=== PATIENT | male | born 1960 | race Caucasian/White ===

== ENCOUNTER 2017-10-21 20:42 | Observation (INO) | payer OTHER ==
--- NOTE | 2017-10-21 20:55 | PDOC ---
Rapid Medical Evaluation Medical Evaluation: 10/21/17 20:48 I have performed a brief in-person evaluation of this patient. The patient presents with a chief complaint of: went to chiropractor today, feels dizzy with "cold and hot to my right arm and left leg", denies weakness/ numbness, felt shaky, nauseous earlier, "difficulty speaking a little" Pertinent physical exam findings: pale, garbled speech I have ordered the following: CBC, CMP, head ct The patient will proceed to the ED for further evaluation. Discharge Disposition - Diagnosis Dizziness - Referrals - Patient Instructions - Post Discharge Activity
[2017-10-21] MEDS ORDERED: SODIUM CHLORIDE 1,000 ML IV SCH (21:00)
--- NOTE | 2017-10-21 21:31 | PDOC ---
History of Present Illness - General History Source: Patient Exam Limitations: No Limitations - History of Present Illness Initial Comments: 10/21/17 21:44 The patient is a 56 year old male with a past medical history of hyperlipidemia , who presents to the emergency department today with confusion. The patient states that earlier today he was driving his car when began to feel confused and could not think straight. The patient reported associated blurred vision. He states that he called his son who brought him to the ED. The patient notes that he had an appointment with the chiropractor today but his head and neck were not manipulated. The patient stated that his symptoms resolved but he has had similar intermittent episodes since his initial episode. He states that he has never previously experience these symptoms. <Sudhir Vargas - Last Filed: 10/21/17 21:44> - General History Source: Patient Exam Limitations: No Limitations <Kesha Lim - Last Filed: 10/22/17 00:30> - General Chief Complaint: CVA/TIA Stated Complaint: FATIGUE Time Seen by Provider: 10/21/17 20:47 Past History <Sudhir Vargas - Last Filed: 10/21/17 21:44> - Past Medical History CVA: No COPD: No - Surgical History GI Surgery: Yes (hernia repair.) - Suicide/Smoking/Psychosocial Hx Smoking History: Never smoked Have you smoked in the past 12 months: No Information on smoking cessation initiated: No Hx Alcohol Use: No Drug/Substance Use Hx: No Substance Use Type: None <Kesha Lim - Last Filed: 10/22/17 00:30> - Past Medical History Allergies/Adverse Reactions: Allergies Allergy/AdvReac Type Severity Reaction Status Date / Time No Known Allergies Allergy Verified 10/21/17 21:01 Home Medications: Ambulatory Orders Aspirin [ASA -] 81 mg PO DAILY 10/21/17 Ezetimibe/Simvastatin [Vytorin 10-10 mg Tablet] 1 tab PO DAILY 10/21/17 Review of Systems - Review of Systems Able to Perform ROS?: Yes Comments:: 10/21/17 21:45 GENERAL/CONSTITUTIONAL: No fever or chills. No weakness. HEAD, EYES, EARS, NOSE AND THROAT: No ear pain or discharge. No sore throat. GASTROINTESTINAL: No nausea, vomiting, diarrhea or constipation. GENITOURINARY: No dysuria, frequency, or change in urination. CARDIOVASCULAR: No chest pain or shortness of breath. RESPIRATORY: No cough, wheezing, or hemoptysis. MUSCULOSKELETAL: No joint or muscle swelling or pain. No neck or back pain. SKIN: No rash NEUROLOGIC: (+) Confusion, blurred vision. ENDOCRINE: No increased thirst. No abnormal weight change. HEMATOLOGIC/LYMPHATIC: No anemia, easy bleeding, or history of blood clots. ALLERGIC/IMMUNOLOGIC: No hives or skin allergy. <Sudhir Vargas - Last Filed: 10/21/17 21:44> *Physical Exam - Vital Signs Last Vital Signs Temp Pulse Resp BP Pulse Ox 97.5 F L 103 H 20 154/98 100 10/21/17 20:51 10/21/17 20:51 10/21/17 20:51 10/21/17 20:51 10/21/17 20:51 - Physical Exam Comments: 10/21/17 21:45 GENERAL: Awake, alert, and fully oriented, in no acute distress HEAD: No signs of trauma EYES: PERRLA, EOMI, sclera anicteric, conjunctiva clear ENT: Auricles normal inspection, nares patent, Moist mucosa NECK: Normal ROM, supple, no lymphadenopathy, JVD, or masses LUNGS: Breath sounds equal, clear to auscultation bilaterally. No wheezes, and no crackles HEART: Regular rate and rhythm, normal S1 and S2, no murmurs, rubs or gallops ABDOMEN: Soft, nontender, normoactive bowel sounds. No guarding, no rebound. No masses EXTREMITIES: Normal range of motion, no edema. No clubbing or cyanosis. No cords, erythema, or tenderness NEUROLOGICAL: NIHSS 0 finger nose intace 5/5 all 4 extremities, speech clear, no dysarthria, some problems with memory recall. SKIN: Warm, Dry, normal turgor, no rashes or lesions noted. <Sudhir Vargas - Last Filed: 10/21/17 21:44> - Vital Signs Last Vital Signs Temp Pulse Resp BP Pulse Ox 97.5 F L 103 H 20 154/98 100 10/21/17 20:51 10/21/17 20:51 10/21/17 20:51 10/21/17 20:51 10/21/17 20:51 <Kesha Lim - Last Filed: 10/22/17 00:30> NIH Stroke Scale - Initial Evaluation Level of consciousness: Alert Ask patient the month and their age: Answers both correctly Ask patient to open & close eyes; make fist and let go: Obeys both correctly Best gaze (horizontal eye movement): Normal Visual field testing: No visual field loss Facial paresis (Show teeth/raise eyebrows/close eyes tight): Normal symmetrical movement Motor Function: Left Arm: Normal Motor Function: Right Arm: Normal (extends arm 90 (or 45) degrees for 10 seconds without drift Motor Function: Left Leg: Normal (extends leg 30 degrees for 5 seconds without drift) Motor Function: Right Leg: Normal (extends leg 30 degrees for 5 seconds without drift) Limb Ataxia: No ataxia Sensory(Use pinprick test arms,legs,trunk,face/side to side): Normal Best language (Describe picture, name items, read sentences): No Aphasia Dysarthria (read several words): Normal articulation Extinction and Inattention: No abnormality - Total Score NIH Stroke Scale Score: 0 <Kesha Lim Last Filed: 10/22/17 00:30> tPA Exclusion Checklist 0-3hr - Thrombolytic Therapy Candidate Is the patient eligible for Thrombolytic Therapy?: No - Exclusion Criteria 0-3hr SBP greater than 185 or DBP greater than 110mmHg despite tx: No Recent IC/spinal surgery,head trauma or stroke w/in last 3mo: No Hx of previous IC hemorrhage, IC neoplasm, AVM or aneurysm: No Active internal bleeding: No Blding diathesis(low plt ct, inc PTT,INR>1.7 or use of NOAC): No Symptoms suggest subarachnoid hemorrhage: No CT demonstrates multilobar infarct(>1/3 cerebral hemiphere): No Arterial puncture at noncompressible site in previous 7 days: No Blood glucose concentration less than 50mg/dL (2.7mmol/L): No - Relative Exclusion Criteria 0-3h Rapid improvement: Yes - Ineligibility reason(s) Reasons No tPA given: See reason(s) noted above (rapid improvement, NIH zero) <Kesha Lim Last Filed: 10/22/17 00:30> Heart Score/ECG Review #1 ECG reviewed & interpreted by me at: 21:30 General ECG Interpretation: Sinus Rhythm, Normal Rate (86), Normal Intervals, No acute ischemic changes <Kesha Lim - Last Filed: 10/22/17 00:30> Critical Care Time/[facility] Note - Medical Decision Making Note: 10/21/17 21:28 56-year-old male with history of hyperlipidemia here today complaining of an episode of transient confusion, feeling unsteady and lightheaded. Patient states he was crossing the street and suddenly felt like he was about to faint with Confusion and difficulty speaking he thought he had some vision changes at the time. Called his son and spoke to his son while driving home symptoms have resolved however he still feels slightly confused and having some difficulty with memory no history of prior similar symptoms no prior CVA no history of vertigo patient states he did get chiropractic manipulation today however was done on his lower back and denies any neck manipulation On exam he is awake alert no acute distress bases are symmetric speech is clear lungs and heart exam is normal neurological exam NIH stroke scale is 05 out of 5 all 4 extremities speech is clear cranial nerves are intact patient having some difficulty with remote memory Differential includes electrolyte abnormality, hypoglycemia, TIA or CVA, ICH, near syncope or dysrhythmia. Plan CT head was ordered per stroke protocol neurology consult labs. At this point patient's symptoms have completely resolved therefore is not a TPA candidate will likely admit for telemetry observation to rule out TIA or dysrhythmia <Kesha Lim - Last Filed: 10/22/17 00:30> Discharge Disposition - Transfer to Acute Care Facility Transfer comment: 10/21/17 21:45 Documentation prepared by Sudhir Vargas, acting as medical pathology teacher for Kesha Lim MD. <Sudhir Vargas - Last Filed: 10/21/17 21:44> - Discharge Dispostion Last Admission D/C Date: 04/19/05 Admit: Yes <Kesha Lim - Last Filed: 10/22/17 00:30> - Diagnosis Dizziness, TIA (transient ischemic attack)
[2017-10-21 21:47] LABS: BASOPHIL 0.5 % (0-2.0); EOSINOPHIL 1.1 % (0-4.5); MCH 30.2 pg (25.7-33.7); MCHC 33.6 g/dl (32.0-35.9); MEAN PLT VOLUME 7.7 fl (7.5-11.1); NEUTROPHILS 46.3 % (42.8-82.8); PLATELET COUNT 187 K/MM3 (134-434); RDW 13.6 % (11.9-15.9); WHITE BLOOD COUNT 7.7 K/mm3 (4.0-10.0)
[2017-10-21] MEDS ORDERED: SODIUM CHLORIDE 0.9% 1000 ML INFUS.BAG IV ONE (21:55)
[2017-10-21 22:06] LABS: INR 0.99 (0.82-1.09); PROTHROMBIN TIME (PATIENT) 11.2 SEC (9.98-11.88)
[2017-10-21 22:44] LABS: ALBUMIN 4.3 g/dl (3.4-5.0); ANION GAP 5 (8-16); BILIRUBIN,TOTAL 0.4 mg/dL (0.2-1.0); CALCIUM 8.9 mg/dL (8.5-10.1); CHOLESTEROL 181 mg/dL (50-200); CO2 31 mmol/L (21-32); CREATININE 1.2 mg/dL (0.7-1.3); GLUCOSE,RANDOM 124 mg/dL (74-106); SGOT/AST 28 U/L (15-37); SGPT/ALT 49 U/L (12-78); TOT PROT 7.5 g/dl (6.4-8.2)
[2017-10-21 22:45] LABS: ALK PHOS 71 U/L (45-117); CPK 426 IU/L (39-308); TROPONIN I 0.04 ng/ml (0.00-0.05)
--- NOTE | 2017-10-22 00:16 | HP ---
CHIEF COMPLAINT: Visual blurriness/confusion HISTORY OF PRESENT ILLNESS: 56yo M with only history of HLD who presents to ED after experiencing a short episode of visual blurriness and confusion. Pt reports having 2-3 episodes that lasted only a few minutes of visual blurriness and some confusion while driving. Pt states he called his brother and had him stay on the line with him while he drove home. Pt was then brought to hospital by his brother for further work-up. His at bedside states he would look at his phone and not understand how to use it or what he was reading. Pt reports never having this occur before and how his symptoms have completely resolved currently. He also states he saw a chiropractor today, but did not have his head or neck manipulated. He went to a chiropractor originally for lower lumbar pain which he attributes to sitting and standing at work. Pt denied fever, nausea/vomiting/ diarrhea/conspitation, lightheadedness, CP/discomfort, palpitations, SOB, abdominal pain, polyuria and dysuria. Pt did not experience any weakness or sensory deficits during these episodes either. ER course was notable for: (1) Head CT - No acute pathology. Old lacunar infarcts noted (2) MRI Brain - Mild nonspecific volume loss. No acute infarct, mass or lesion seen. (3) UA - Trace ketones Recent Travel: Denies PAST MEDICAL HISTORY: HLD PAST SURGICAL HISTORY: Hernia repair Social History: Smoking: Denies Alcohol: Holidays Drugs: Denies Family History: Mother - "Heart problems;" suspected CA Father - at a young age overseas; unknown cause Allergies No Known Allergies Allergy (Verified 10/21/17 21:01) HOME MEDICATIONS: Home Medications Medication Instructions Recorded Aspirin [ASA -] 81 mg PO DAILY 10/21/17 Ezetimibe/Simvastatin [Vytorin 1 tab PO DAILY 10/21/17 10-10 mg Tablet] REVIEW OF SYSTEMS CONSTITUTIONAL: Absent: fever, diaphoresis, generalized weakness, malaise, loss of appetite, weight change HEENT: Absent: rhinorrhea, nasal congestion, throat pain, throat swelling, difficulty swallowing, mouth swelling, ear pain, eye pain, visual changes CARDIOVASCULAR: Absent: chest pain, syncope, palpitations, irregular heart rate, lightheadedness , peripheral edema RESPIRATORY: Absent: cough, shortness of breath, dyspnea with exertion, orthopnea, wheezing, stridor, hemoptysis GASTROINTESTINAL: Absent: abdominal pain, abdominal distension, nausea, vomiting, diarrhea, constipation, melena, hematochezia GENITOURINARY: Absent: dysuria, frequency, urgency, hesitancy, hematuria, flank pain, genital pain MUSCULOSKELETAL: Absent: myalgia, arthralgia, joint swelling, back pain, neck pain SKIN: Absent: rash, itching, pallor HEMATOLOGIC/IMMUNOLOGIC: Absent: easy bleeding, easy bruising, lymphadenopathy, frequent infections ENDOCRINE: Absent: unexplained weight gain, unexplained weight loss, heat intolerance, cold intolerance NEUROLOGIC: Present: Visual changes, confusion Absent: headache, focal weakness or paresthesias, dizziness, unsteady gait, seizure, bladder or bowel incontinence PSYCHIATRIC: Absent: anxiety, depression, suicidal or homicidal ideation, hallucinations. PHYSICAL EXAMINATION Vital Signs - 24 hr 10/21/17 20:51 Temperature 97.5 F L Pulse Rate 103 H Respiratory 20 Rate Blood Pressure 154/98 O2 Sat by Pulse 100 Oximetry (%) GENERAL: Awake, alert, NAD, sitting comfortably in bed HEENT: EOMI, CIERA, No JVD, no lymphadenopathy, no uvula deviation, no tongue deviation, no erythema or plaques in posterior oropharynx. No neck stiffness. LUNGS: CTA bilaterally. No wheezes, rales, rhonchi. No accessory muscle use. HEART: RRR, normal S1 and S2 without murmur ABDOMEN: Soft, nontender, non-distended, normoactive bowel sounds, no guarding, no rebound, no masses. No hepatomegaly appreciated. MUSCULOSKELETAL: Normal range of motion at all joints. No bony deformities or tenderness. No CVA tenderness. EXTREMITIES: 2+ DP pulses, warm, no edema. NEUROLOGICAL: Cranial nerves II-XII intact. EOMI, peripheral vision intact. Normal speech, strength 5/5 throughout (including shoulder shrug, upper extremities and lower extremities). Gait not observed. No sensory deficits diffusely. No arm drift. PSYCHIATRIC: Cooperative. Good eye contact. Appropriate mood and affect. SKIN: Warm, no rashes or lesions noted, cap refill <2sec Laboratory Results - last 24 hr 10/21/17 10/21/17 10/21/17 21:15 21:15 21:15 WBC 7.7 RBC 4.75 Hgb 14.4 Hct 42.7 MCV 90.0 MCH 30.2 MCHC 33.6 RDW 13.6 Plt Count 187 MPV 7.7 Neutrophils % 46.3 Lymphocytes % 43.5 H Monocytes % 8.6 Eosinophils % 1.1 Basophils % 0.5 PT with INR 11.20 INR 0.99 Sodium 138 Potassium 4.1 Chloride 102 Carbon Dioxide 31 Anion Gap 5 L BUN 18 Creatinine 1.2 Creat Clearance w eGFR > 60 Random Glucose 124 H Calcium 8.9 Total Bilirubin 0.4 AST 28 ALT 49 Alkaline Phosphatase 71 Creatine Kinase 426 H Creatine Kinase Index 2.1 CK-MB (CK-2) 9.241 H Troponin I 0.04 Total Protein 7.5 Albumin 4.3 Triglycerides 168 H Cholesterol 181 Total LDL Cholesterol 102 H HDL Cholesterol 58 Blood Type Antibody Screen 10/21/17 21:15 WBC RBC Hgb Hct MCV MCH MCHC RDW Plt Count MPV Neutrophils % Lymphocytes % Monocytes % Eosinophils % Basophils % PT with INR INR Sodium Potassium Chloride Carbon Dioxide Anion Gap BUN Creatinine Creat Clearance w eGFR Random Glucose Calcium Total Bilirubin AST ALT Alkaline Phosphatase Creatine Kinase Creatine Kinase Index CK-MB (CK-2) Troponin I Total Protein Albumin Triglycerides Cholesterol Total LDL Cholesterol HDL Cholesterol Blood Type O POSITIVE Antibody Screen Negative ASSESSMENT/PLAN: 56yo M with only medical history of HLD who presents for a suspected TIA after experiencing multiple rapid episodes of confusion and bluriness. CT shows old lacunar infarcts with no acute pathology. MRI shows no acute pathology. Pt has had complete resolution of symptoms currently 1) Suspected TIA --CT and MRI findings noted --Lipitor 40mg HS PO --Carotid dopplers ordered --Echocardiogram ordered --Neurology consulted --ASA 81mg to continue 2) HLD --Pt normally takes Vytorin 10-10 --Will use Lipitor 40 as above --Lipid profile ordered for AM FEN: Fluids: Not indicated; pt tolerating PO Electrolyte abnormalities: None currently Nutrition: Cholesterol controlled diet PPX: DVT - SCDs Deconditioning - Early ambulation Dispo: Place in tele observation status Case discussed with Dr. Cecilio Ramos, DO - Internal Medicine PGY-1 Visit type - Emergency Visit Emergency Visit: Yes Care time: The patient presented to the Emergency Department on the above date and was hospitalized for further evaluation of their emergent condition. - New Patient This patient is new to me today: Yes Date on this admission: 10/22/17 - Critical Care Critical Care patient: No
[2017-10-22 00:17] LABS: URINE APPEARANCE CLEAR; URINE BILIRUBIN NEGATIVE (NEGATIVE); URINE BLOOD NEGATIVE (NEGATIVE); URINE COLOR LTYELLOW; URINE GLUCOSE (UA) NEGATIVE (NEGATIVE); URINE KETONE TRACE (NEGATIVE); URINE LEUK ESTERASE NEGATIVE (NEGATIVE); URINE NITRITE NEGATIVE (NEGATIVE); URINE PROTEIN NEGATIVE (NEGATIVE); URINE UROBILINOGEN NEGATIVE mg/dL (0.2-1.0)
--- NOTE | 2017-10-22 00:29 | PN ---
Teaching Attending Note Name of Resident: Javier Ramos ATTENDING PHYSICIAN STATEMENT I saw and evaluated the patient. I reviewed the resident's note and discussed the case with the resident. I agree with the resident's findings and plan as documented. SUBJECTIVE: 56 year old male with 1 day history of intermittent confusion and blurry vision . Resolved upon arrival . OBJECTIVE: Vital Signs Temperature 97.9 F 10/22/17 00:01 Pulse Rate 80 10/22/17 00:01 Respiratory Rate 17 10/22/17 00:01 Blood Pressure 128/84 10/22/17 00:01 O2 Sat by Pulse Oximetry (%) 99 10/22/17 00:01 HEAD, EYES, EARS, NOSE AND THROAT: No ear pain or discharge. No sore throat. GASTROINTESTINAL: No nausea, vomiting, diarrhea or constipation. GENITOURINARY: No dysuria, frequency, or change in urination. CARDIOVASCULAR: No chest pain or shortness of breath. RESPIRATORY: No cough, wheezing, or hemoptysis. MUSCULOSKELETAL: No joint or muscle swelling or pain. No neck or back pain. SKIN: No rash NEUROLOGIC: (+) Confusion, blurred vision. CBC, BMP 10/21/17 21:15 10/21/17 21:15 Current Medications Generic Name Dose Route Start Last Admin Trade Name Freq PRN Reason Stop Dose Admin Atorvastatin Calcium 40 mg 10/22/17 22:00 Lipitor - PO HS [facility] Urine Test Results Urine Color Ltyellow 10/22/17 00:07 Urine Appearance Clear 10/22/17 00:07 Urine pH 5.0 (5.0-8.0) 10/22/17 00:07 Ur Specific [place] 1.018 (1.001-1.035) 10/22/17 00:07 Urine Protein Negative (NEGATIVE) 10/22/17 00:07 Urine Glucose (UA) Negative (NEGATIVE) 10/22/17 00:07 Urine Ketones Trace (NEGATIVE) H 10/22/17 00:07 Urine Blood Negative (NEGATIVE) 10/22/17 00:07 Urine Nitrite Negative (NEGATIVE) 10/22/17 00:07 Urine Bilirubin Negative (NEGATIVE) 10/22/17 00:07 CT negative for acute stroke MRI - no acute findings ASSESSMENT AND PLAN: 1. TIA - symptoms resolved . - telemetry r/o arrythmia - statin - ASA - HB a1c - lipid profile - carotid doppler - echo - MRI noted 2. HTN - suboptimal control - monitor BP - low dose ACEIS
[2017-10-22 01:51] VITALS: BMI 33.1
[2017-10-22 07:25] LABS: MCH 29.9 pg (25.7-33.7); MCHC 33.6 g/dl (32.0-35.9); MEAN CELL VOLUME 89.1 fl (80-96); MEAN PLT VOLUME 7.7 fl (7.5-11.1); PLATELET COUNT 161 K/MM3 (134-434); RDW 13.3 % (11.9-15.9); WHITE BLOOD COUNT 6.5 K/mm3 (4.0-10.0)
[2017-10-22 07:55] LABS: ANION GAP 7 (8-16); CALCIUM 8.7 mg/dL (8.5-10.1); CO2 27 mmol/L (21-32)
[2017-10-22 08:02] LABS: CREATININE 0.8 mg/dL (0.7-1.3); GLUCOSE,RANDOM 100 mg/dL (74-106)
--- NOTE | 2017-10-22 08:30 | CON.NEURO ---
Consult - History of Present Illness History of Present Illness: 56 year old male, history of Hyperlipidemi, came with blurring of vision and dizzines. He also felt confusion, disorentation. He went to chiropractioner fo rlow back pain. He felt he do not how to use his phone or what he as reading. His symptoms lasted few hours. He had ct head and mri of [place] and carotid ultrasound is normal. He denies any headache , migraine , weakness , loc or sensory loss - Alcohol/Substance Use Hx Alcohol Use: No - Smoking History Smoking history: Never smoked Have you smoked in the past 12 months: No Home Medications - Allergies Allergies/Adverse Reactions: Allergies Allergy/AdvReac Type Severity Reaction Status Date / Time No Known Allergies Allergy Verified 10/21/17 21:01 - Home Medications Home Medications: Ambulatory Orders Aspirin [ASA -] 81 mg PO DAILY 10/21/17 Ezetimibe/Simvastatin [Vytorin 10-10 mg Tablet] 1 tab PO DAILY 10/21/17 Multivitamin [One Daily] 1 each PO DAILY 10/22/17 Rozel-3S/Dha/Epa/Fish Oil/D3 [Fish Jwu-Gpoul-4-Vit D Softgel] 1 each PO DAILY Physical Exam-Neuro Vital Signs: Vital Signs Temperature 97.8 F 10/22/17 05:00 Pulse Rate 68 10/22/17 05:00 Respiratory Rate 18 10/22/17 05:00 Blood Pressure 128/81 10/22/17 05:00 O2 Sat by Pulse Oximetry (%) 96 10/22/17 00:30 Labs: CBC, BMP 10/22/17 05:35 INR, PTT INR 0.99 (0.82-1.09) 10/21/17 21:15 Assessment/Plan cc admitted for suspected tia/stroke HPI 56 year old male, history of Hyperlipidemi, came with blurring of vision and dizzines. He also felt confusion, disorentation. He went to chiropractioner fo rlow back pain. He felt he do not how to use his phone or what he as reading. His symptoms lasted few hours. He had ct head and mri of [place] and carotid ultrasound is normal. He denies any headache , migraine , weakness , loc or sensory loss PAST MEDICAL HISTORY: HLD PAST SURGICAL HISTORY: Hernia repair Social History: Smoking: Denies Alcohol: Holidays Drugs: Denies FH is not contributory ROS reviewed in chart Neurological Examination Alert oriented x 3 CN all intact, eomi, vf by confrontation normal, pupils is reactive motor is normal, FTN and HTN is normal sensaiton is normal NIH is 0 and able to swallow CT , MRI OF BRAIN AND carotid ultrasound is normal echo is pending Assessmen Transient focal neurological Symptoms, etiology unclear. Suspect TIA Plan-- suggest to switch him to plavix - continue dose of statin -suggest we can involve hemtologist ( hypercoagubility work up) and crop pest control specialist ( [place]) Once initial work up is negative - EEG can also be obtain, but can be done outpatient if takes long Thank you so much Charles Mejía MD
[2017-10-22] MEDS ORDERED: ASPIRIN 81 MG CHEWABLE TABLETS PO SCH (10:00)
[2017-10-22] MEDS ORDERED: CLOPIDOGREL BISULFATE 75 MG TABLET (FP) PO SCH (10:00)
--- NOTE | 2017-10-22 11:34 | EKG ---
Test Reason : Blood Pressure : / mmHG Vent. Rate : 086 BPM Atrial Rate : 086 BPM P-R Int : 162 ms QRS Dur : 102 ms QT Int : 360 ms P-R-T Axes : 047 029 011 degrees QTc Int : 430 ms NORMAL SINUS RHYTHM POSSIBLE LEFT ATRIAL ENLARGEMENT BORDERLINE ECG WHEN COMPARED WITH ECG OF 19-MAR-2009 14:14, VENT. RATE HAS INCREASED BY 39 BPM Confirmed by MANDI HOGAN MD ([id number]) on 10/22/2017 11:33:41 AM Referred By: Confirmed By:MANDI HOGAN MD
[2017-10-22 11:57] LABS: CHOLESTEROL 160 mg/dL (50-200)
[2017-10-22 12:49] LABS: URINE LEUK ESTERASE Negative (NEGATIVE)
[2017-10-22 14:39] VITALS: BP 119/71; PULSE 65; TEMP 97.8
--- NOTE | 2017-10-22 15:32 | DS ---
Physical Exam: SUBJECTIVE: Patient seen and examined. He says his symptoms have all resolved. He feels good, denies chest pain, strength as returned, mental status. OBJECTIVE: Vital Signs Period Temp Pulse Resp BP Sys/Maynard Pulse Ox Last 24 Hr 97.5 F-97.9 F 65-103 16-20 119-154/71-98 96-100 PE Neuro: alert, awake, cn 2-12intact, motor 5/5 sensory intact Pulm: CTAB CV: s1 s2 rrr no mrg Abd: s nt nd + bs Ext: warm, no led edema Laboratory Results - last 24 hr 10/21/17 10/21/17 10/21/17 21:15 21:15 21:15 WBC 7.7 RBC 4.75 Hgb 14.4 Hct 42.7 MCV 90.0 MCH 30.2 MCHC 33.6 RDW 13.6 Plt Count 187 MPV 7.7 Neutrophils % 46.3 Lymphocytes % 43.5 H Monocytes % 8.6 Eosinophils % 1.1 Basophils % 0.5 PT with INR 11.20 INR 0.99 Sodium 138 Potassium 4.1 Chloride 102 Carbon Dioxide 31 Anion Gap 5 L BUN 18 Creatinine 1.2 Creat Clearance w eGFR > 60 Random Glucose 124 H Calcium 8.9 Total Bilirubin 0.4 AST 28 ALT 49 Alkaline Phosphatase 71 Creatine Kinase 426 H Creatine Kinase Index 2.1 CK-MB (CK-2) 9.241 H Troponin I 0.04 Total Protein 7.5 Albumin 4.3 Triglycerides 168 H Cholesterol 181 Total LDL Cholesterol 102 H HDL Cholesterol 58 Urine Color Urine Appearance Urine pH Ur Specific [place] Urine Protein Urine Glucose (UA) Urine Ketones Urine Blood Urine Nitrite Urine Bilirubin Urine Urobilinogen Ur Leukocyte Esterase Blood Type Antibody Screen 10/21/17 10/22/17 10/22/17 21:15 00:07 05:35 WBC 6.5 RBC 4.49 Hgb 13.4 Hct 40.0 MCV 89.1 MCH 29.9 MCHC 33.6 RDW 13.3 Plt Count 161 MPV 7.7 Neutrophils % Lymphocytes % Monocytes % Eosinophils % Basophils % PT with INR INR Sodium Potassium Chloride Carbon Dioxide Anion Gap BUN Creatinine Creat Clearance w eGFR Random Glucose Calcium Total Bilirubin AST ALT Alkaline Phosphatase Creatine Kinase Creatine Kinase Index CK-MB (CK-2) Troponin I Total Protein Albumin Triglycerides Cholesterol Total LDL Cholesterol HDL Cholesterol Urine Color Ltyellow Urine Appearance Clear Urine pH 5.0 Ur Specific [place] 1.018 Urine Protein Negative Urine Glucose (UA) Negative Urine Ketones Trace H Urine Blood Negative Urine Nitrite Negative Urine Bilirubin Negative Urine Urobilinogen Negative Ur Leukocyte Esterase Negative Blood Type O POSITIVE Antibody Screen Negative 10/22/17 05:35 WBC RBC Hgb Hct MCV MCH MCHC RDW Plt Count MPV Neutrophils % Lymphocytes % Monocytes % Eosinophils % Basophils % PT with INR INR Sodium 138 Potassium 3.6 Chloride 104 Carbon Dioxide 27 Anion Gap 7 L BUN 17 Creatinine 0.8 D Creat Clearance w eGFR Random Glucose 100 Calcium 8.7 Total Bilirubin AST ALT Alkaline Phosphatase Creatine Kinase Creatine Kinase Index CK-MB (CK-2) Troponin I Total Protein Albumin Triglycerides 63 D Cholesterol 160 Total LDL Cholesterol 97 HDL Cholesterol 54 Urine Color Urine Appearance Urine pH Ur Specific [place] Urine Protein Urine Glucose (UA) Urine Ketones Urine Blood Urine Nitrite Urine Bilirubin Urine Urobilinogen Ur Leukocyte Esterase Blood Type Antibody Screen HOSPITAL COURSE: Date of Admission:10/21/17 Date of Discharge: 10/22/17 Minutes to complete discharge: 37 Discharge Summary Reason For Visit: [facility] Hospital Course: Initial Hospital Course: Briefly, this 56 year old male with only history of HLD presented to ED after experiencing a short episode of visual blurriness and confusion. Pt reported having 2-3 episodes that lasted only a few minutes of visual blurriness and some confusion while driving. Pt stated he called his brother and had him stay on the line with him while he drove home. Pt was brought to hospital by his brother for further work-up. His at bedside stated he would look at his phone and not understand how to use it or what he was reading. Pt reported never having this occur before and how his symptoms have completely resolved currently. He did see his chiropractor today, but did not have his head or neck manipulated. He went to a chiropractor originally for lower lumbar pain which he attributes to sitting and standing at work. Imaging: - CT head, MRI, CD wnl - ECHO 10/2017: normal lvsf, rvsp fx, trace tr Subsequent Hospital Course/Progress Note/DC summary: Plan: 1. Transient focal neurological Symptoms, etiology unclear, Suspect TIA - Changed ASA to plavix - Started on lipitor 40mg hs - Neuro appt 10/26 945am for continued work up - Hematology appt made 10/29 @930am for hypercoaguable work up - Cardiology 10/28 @ 945am for ROGERS Dispo: - Home with above appts and medication Condition: Stable - Instructions Diet, Activity, Other Instructions: Please return to the ED for any new, persistent, or worsening symptoms. Follow up with your PCP in 1 week. Take new home medication as directed Keep neurology appt made on 10/26 945am Keep Hematology appt made on for hypercoaguable work up 10/29 930 Keep appt with cardiology on 10/28 1pm for rogers referral Referrals: Melvin Ace [Primary Care Provider] - Sean Spain MD [Staff Physician] - 10/28/17 1:00 pm Elsa Leigh MD [Staff Physician] - 10/29/17 9:30 am Charles Mejía MD [Staff Physician] - 10/26/17 9:45 am Disposition: HOME - Home Medications Comprehensive Discharge Medication List: Ambulatory Orders Atorvastatin Ca [Lipitor] 40 mg PO HS #30 tablet 10/22/17 Clopidogrel Bisulfate [Plavix -] 75 mg PO DAILY #30 tablet 10/22/17 Multivitamin [One Daily] 1 each PO DAILY 10/22/17 [place]acon-3S/Dha/Epa/Fish Oil/D3 [Fish Ums-Cxhxa-6-Vit D Softgel] 1 each PO DAILY This patient is new to me today: Yes Date on this admission: 10/22/17 Emergency Visit: Yes ED Registration Date: 10/21/17 Care time: The patient presented to the Emergency Department on the above date and was hospitalized for further evaluation of their emergent condition. Critical Care patient: No - Discharge Referral Referred to [facility] Med P.C.: No
[2017-10-22] MEDS ORDERED: ATORVASTATIN CA 40 MG TABLET (FP) PO SCH (22:00)
== END 2017-10-22 17:45 | disposition home or self-care (01) ==
LOC: JER 20:42 → JERBED 23:35 → UNDOADMOB 10-22 00:13 → JERBED 10-22 00:13 → J4S 10-22 01:20
PROVIDERS: ADMIT Internal Medicine; ATTEND Nurse Practitioner Acute Care
DX: G45.9 Transient cerebral ischemic attack, unspecified (principal); E78.5 Hyperlipidemia, unspecified
CPT/HCPCS: 36415; 70450-TC; 70551-TC; 72125-TC; 80048; 80053; 80061; 81003; 82465; 82550; 82553; 83718; 83721; 84478; 84484; 85025; 85027; 85610; 86850; 86900; 86901; 93005; 93010; 93306-TC; 93880-TC; 99285-25; G0378

== ENCOUNTER 2018-05-28 12:54 | Inpatient (IN) | payer OTHER ==
--- NOTE | 2018-05-28 13:58 | PDOC ---
History of Present Illness - General Chief Complaint: Pain, Acute Stated Complaint: URINARY PROBLEM (KIDNEY STONE) Time Seen by Provider: 05/28/18 13:46 - History of Present Illness Initial Comments: 05/28/18 15:01 57 year old male with a PMH of HLD and nephrolithiasis presents c/o 3 day h/o L flank pain that radiated to his groin. Endorses subjective fevers and decreased urination. He was able to urinate Tolerating PO intake but notes decreased appetite 2/2 to his symptoms. Patient states he was evaluated at [facility]gent care this morning and told he had an obstructing stone and needed to go to the Emergency Department. Patient notes he has had lithotripsy and uterscopy for removal of previous stones. Patient denies any chest pain, shortness of breath, recent travel or sick contacts. NKDA Surgical: uterscopy Social: denies nicotine, denies alcohol, denies recreational drugs Past History - Past Medical History Allergies/Adverse Reactions: Allergies Allergy/AdvReac Type Severity Reaction Status Date / Time No Known Allergies Allergy Verified 05/28/18 13:06 Home Medications: Ambulatory Orders Aspirin [ASA -] 81 mg PO DAILY 05/28/18 Simvastatin [Zocor -] 40 mg PO HS 05/29/18 CVA: No COPD: No Hypercholesterolemia: Yes - Surgical History GI Surgery: Yes (hernia repair.) Orthopedic Surgery: Yes (leg sx) - Suicide/Smoking/Psychosocial Hx Smoking History: Never smoked Have you smoked in the past 12 months: No Hx Alcohol Use: No Drug/Substance Use Hx: No Substance Use Type: None Hx Substance Use Treatment: No Review of Systems - Review of Systems Constitutional: Yes: Fever. No: Chills Respiratory: No: Cough, Shortness of Breath Cardiac (ROS): No: See HPI, Chest Pain, Lightheadedness, Syncope ABD/GI: Yes: See HPI. No: Constipated, Diarrhea *Physical Exam - Vital Signs Last Vital Signs Temp Pulse Resp BP Pulse Ox 98.7 F 104 H 16 115/77 97 05/28/18 13:09 05/28/18 13:09 05/28/18 13:09 05/28/18 13:09 05/28/18 13:09 - Physical Exam General Appearance: Yes: Nourished, Appropriately Dressed HEENT: positive: EOMI, ALIVIA Neck: positive: Trachea midline, Supple Respiratory/Chest: positive: Lungs Clear, Normal Breath Sounds Cardiovascular: positive: S1, S2. negative: Edema, JVD Gastrointestinal/Abdominal: positive: Normal Bowel Sounds, Soft. 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 PE shows mild TTP of RLQ. Will obtain CT scan report from urgent care, hydrate, pain control with Toradol. 05/28/18 15:53 CT scan from [facility] shows 4 mm obstructing stone in L uteral calculus as well as multiple non-obstructing calculi. Bedside U/S shows L sided hydronephrosis, bladder volume of 44 cc. UA pending. Patient resting comfortably. 05/28/18 16:17 CMP significant for mild SUMMER - Cr 2.8 (0.8 in 10/2017). UA shows 2+ blood c/w nephrolithiasis. Will admit for continued hydration and pain control. Patient and patient's counseled on plan of care. Amenable to admission. Patient admitted for observation to hospitalist team. *DC/Admit/Observation/Transfer Diagnosis at time of Disposition: Nephrolithiasis - Discharge Dispostion Condition at time of disposition: Fair Decision to Admit order: Yes - Referrals - Patient Instructions - Post Discharge Activity
[2018-05-28 14:23] LABS: BASO % 0.5 % (0-2.0); EOS % 0.3 % (0-4.5); HEMATOCRIT 43.3 % (35.4-49); HEMOGLOBIN 14.6 GM/dL (11.7-16.9); LYMPH % 9.6 % (8-40); MCH 30.2 pg (25.7-33.7); MCHC 33.7 g/dl (32.0-35.9); MEAN CELL VOLUME 89.5 fl (80-96); MEAN PLT VOLUME 7.6 fl (7.5-11.1); MONO % 8.7 % (3.8-10.2); NEUT % 80.9 % (42.8-82.8); PLATELET COUNT 181 K/MM3 (134-434); RBC 4.84 M/mm3 (4.00-5.60)
[2018-05-28] MEDS ORDERED: SODIUM CHLORIDE 1,000 ML IV STA (14:35)
[2018-05-28] MEDS ORDERED: KETOROLAC TROMETHAMINE 30 MG/1 ML VIAL IVPUSH ONE (14:35)
[2018-05-28] MEDS ORDERED: KETOROLAC TROMETHAMINE 15 MG/ML VIAL ONE (14:37)
--- NOTE | 2018-05-28 14:52 | PDOC ---
Attending Attestation - Resident Resident Name: Reena Rg - ED Attending Attestation I have performed the following: I have examined & evaluated the patient, The case was reviewed & discussed with the resident, I agree w/resident's findings & plan, Exceptions are as noted - HPI HPI: 05/28/18 14:52 57 M with h/o HLD, kidney stones presenting to ED with L flank pain x 2 days. Pt reports colicky pain that he states feels like his previous kidney stones. He denies any fevers. Denies dysuria. Pt states that he went to [facility] earlier today and had a CT scan that showed a 4mm L ureteral stone. Pt was then sent to ED for further evaluation. Pt states that the pain has since migrated from his L flank towards his groin but has not yet resolved completely. He reports urinating only small amounts of urine but denies any urinary retention. - Physicial Exam PE: 05/28/18 14:58 "GENERAL: Awake, alert, and fully oriented, in no acute distress. HEAD: No signs of trauma EYES: PERRLA, EOMI, sclera anicteric, conjunctiva clear ENT: Auricles normal inspection, hearing grossly normal, nares patent, oropharynx clear without exudates. Moist mucosa NECK: Nontender, no stepoffs, Normal ROM, supple, no lymphadenopathy, JVD, or masses LUNGS: Breath sounds equal, clear to auscultation bilaterally. No wheezes, and no crackles HEART: Regular rate and rhythm, normal S1 and S2, no murmurs, rubs or gallops ABDOMEN: Soft, nontender, normoactive bowel sounds. No guarding, no rebound. No masses EXTREMITIES: Normal range of motion, no edema. No clubbing or cyanosis. No cords, erythema, or tenderness NEUROLOGICAL: Cranial nerves II through XII intact. 5/5 strength and sensation in all extremities, Normal speech, normal gait, normal cerebellar function SKIN: Warm, Dry, normal turgor, no rashes or lesions noted. : + L CVAT - Medical Decision Making 05/28/18 14:58 57 M with confirmed L sided kidney stone on CT today at urgent care, sent to ED for further evaluation. Pt's pain is relatively well controlled. Will check electrolytes and UA to r/o SUMMER and UTI. - Labs, UA - IVF, toradol 05/28/18 17:05 Labs notable for new SUMMER with Cr 2. Will admit for continued IV hydration and trending of Cr.
[2018-05-28 15:09] LABS: ALBUMIN 4.3 g/dl (3.4-5.0); ANION GAP 9 (8-16); BILIRUBIN,TOTAL 0.7 mg/dL (0.2-1.0); BLOOD UREA NITROGEN 24 mg/dL (7-18); CALCIUM 9.2 mg/dL (8.5-10.1); CHLORIDE 101 mmol/L (98-107); CO2 28 mmol/L (21-32); CREATININE 2.1 mg/dL (0.7-1.3); GLUCOSE,RANDOM 98 mg/dL (74-106); POTASSIUM 4.1 mmol/L (3.5-5.1); SGOT/AST 24 U/L (15-37); SGPT/ALT 45 U/L (12-78); SODIUM 138 mmol/L (136-145); TOT PROT 7.3 g/dl (6.4-8.2)
[2018-05-28 15:10] LABS: ALK PHOS 56 U/L (45-117)
[2018-05-28 15:46] LABS: URINE APPEARANCE CLOUDY; URINE BILIRUBIN NEGATIVE (<2.0 mg/dL); URINE COLOR LTYELLOW; URINE GLUCOSE (UA) NEGATIVE (NEGATIVE); URINE KETONE TRACE (NEGATIVE); URINE LEUK ESTERASE TRACE (NEGATIVE); URINE NITRITE NEGATIVE (NEGATIVE); URINE UROBILINOGEN NEGATIVE mg/dL (0.2-1.0)
[2018-05-28 15:47] LABS: URINE PROTEIN 1+ (NEGATIVE)
[2018-05-28 15:52] LABS: URIC ACID CRYSTALS MANY /hpf (NONE SEEN); URINE HYALINE CAST 1 /lpf; URINE MUCUS RARE
[2018-05-28] MEDS: SODIUM CHLORIDE 1,000 ML IV SCH (16:48)
--- NOTE | 2018-05-28 18:00 | HP ---
CHIEF COMPLAINT: left flank pain, kidney stone PCP: Karishma HISTORY OF PRESENT ILLNESS: This is a 57 year old male with PMHx of hyperlipidemia, kidney stones, who presented to the ED with left flank pain. The patient was seen at [facility] and had a CTAP today that showed a 4mm obstructing calculus in the distal left ureter with mild to moderate left sided hydroureteronephrosis. He came to the ED for pain control. He denies any fever or chills. He denies any nausea, vomiting, chest pain, palpitations, headache ER course was notable for: (1) Temp 98.7, pulse 104, BP 115/77, resp 16, O2 97% on RA (2) WBC 12 (3) Cr 2.1 Recent Travel: denies PAST MEDICAL HISTORY: as above PAST SURGICAL HISTORY: hernia repain 1983 Social History: Smoking: denies Alcohol: socially on weekend Drugs: denies Family History: Allergies No Known Allergies Allergy (Verified 05/28/18 13:06) HOME MEDICATIONS: Home Medications Medication Instructions Recorded Aspirin [ASA -] 81 mg PO DAILY 05/28/18 REVIEW OF SYSTEMS CONSTITUTIONAL: Absent: fever, chills, diaphoresis, generalized weakness, malaise, loss of appetite, weight change HEENT: Absent: rhinorrhea, nasal congestion, throat pain, throat swelling, difficulty swallowing, mouth swelling, ear pain, eye pain, visual changes CARDIOVASCULAR: Absent: chest pain, syncope, palpitations, irregular heart rate, lightheadedness , peripheral edema RESPIRATORY: Absent: cough, shortness of breath, dyspnea with exertion, orthopnea, wheezing, stridor, hemoptysis GASTROINTESTINAL: Left flank pain that began a few days ago. CTAP with obstructing 4mm kidney stone Absent: abdominal distension, nausea, vomiting, diarrhea, constipation, melena, hematochezia GENITOURINARY: Absent: dysuria, frequency, urgency, hesitancy, hematuria, flank pain, genital pain MUSCULOSKELETAL: Absent: myalgia, arthralgia, joint swelling, back pain, neck pain SKIN: Absent: rash, itching, pallor HEMATOLOGIC/IMMUNOLOGIC: Absent: easy bleeding, easy bruising, lymphadenopathy, frequent infections ENDOCRINE: Absent: unexplained weight gain, unexplained weight loss, heat intolerance, cold intolerance NEUROLOGIC: Absent: headache, focal weakness or paresthesias, dizziness, unsteady gait, seizure, mental status changes, bladder or bowel incontinence PSYCHIATRIC: Absent: anxiety, depression, suicidal or homicidal ideation, hallucinations. PHYSICAL EXAMINATION Vital Signs - 24 hr 05/28/18 13:09 Temperature 98.7 F Pulse Rate 104 H Respiratory 16 Rate Blood Pressure 115/77 O2 Sat by Pulse 97 Oximetry (%) GENERAL: Awake, alert, and fully oriented, in no acute distress. HEAD: Normal with no signs of trauma. EYES: Pupils equal, round and reactive to light, extraocular movements intact, sclera anicteric, conjunctiva clear. No lid lag. EARS, NOSE, THROAT: Ears normal, nares patent, oropharynx clear without exudates. Moist mucous membranes. NECK: Normal range of motion, supple without lymphadenopathy, JVD, or masses. LUNGS: Breath sounds equal, clear to auscultation bilaterally. No wheezes, and no crackles. No accessory muscle use. HEART: Regular rate and rhythm, normal S1 and S2 without murmur, rub or gallop. ABDOMEN: Soft, nontender, not distended, normoactive bowel sounds, no guarding, no rebound, no masses. No hepatomegaly or splenomegaly. MUSCULOSKELETAL: Normal range of motion at all joints. No bony deformities or tenderness. No CVA tenderness. UPPER EXTREMITIES: 2+ pulses, warm, well-perfused. No cyanosis. No clubbing. No peripheral edema. LOWER EXTREMITIES: 2+ pulses, warm, well-perfused. No calf tenderness. No peripheral edema. NEUROLOGICAL: Cranial nerves II-XII intact. Normal speech. PSYCHIATRIC: Cooperative. Good eye contact. Appropriate mood and affect. SKIN: Warm, dry, normal turgor, no rashes or lesions noted, normal capillary refill. Laboratory Results - last 24 hr 05/28/18 05/28/18 05/28/18 14:02 14:02 14:02 WBC 12.0 H RBC 4.84 Hgb 14.6 Hct 43.3 MCV 89.5 MCH 30.2 MCHC 33.7 RDW 14.0 Plt Count 181 MPV 7.6 Absolute Neuts (auto) 9.7 Neutrophils % 80.9 D Lymphocytes % 9.6 D Monocytes % 8.7 Eosinophils % 0.3 Basophils % 0.5 Nucleated RBC % 0 Sodium 138 Potassium 4.1 Chloride 101 Carbon Dioxide 28 Anion Gap 9 BUN 24 H Creatinine 2.1 H Creat Clearance w eGFR 32.95 Random Glucose 98 Calcium 9.2 Total Bilirubin 0.7 AST 24 ALT 45 Alkaline Phosphatase 56 Total Protein 7.3 Albumin 4.3 Urine Color Ltyellow Urine Appearance Cloudy Urine pH 5.0 Ur Specific [place] 1.015 Urine Protein 1+ H Urine Glucose (UA) Negative Urine Ketones Trace H Urine Blood 2+ H Urine Nitrite Negative Urine Bilirubin Negative Urine Urobilinogen Negative Ur Leukocyte Esterase Trace Urine WBC (Auto) None Urine RBC (Auto) 36 Uric Acid Crystals Many Hyaline Casts 1 Urine Mucus Rare Assessment: This is a 57 year old male with PMHx of hyperlipidemia, kidney stones, who presented to the ED with left flank pain. Plan: 1) SUMMER 2/2 Left obstructing kidney stone - CTAP today 4mm obstructing distal left ureteral calculus with moderate left- sided hydroureteronephrosis - Pain management - IV fluids - Strain all urine - F/u urology consult 2) F/E/N: - Regular diet - NPO after midnight if any urologic procedures need to be done tomorrow - Monitor electrolytes 3) Prophylaxis: - Hold all chemical DVT prophylaxis until evaluated by urology - SCDs bilaterally 4) Dispo: - Once condition improves CODE STATUS: FULL CODE Visit type - Emergency Visit Emergency Visit: Yes ED Registration Date: 05/28/18 Care time: The patient presented to the Emergency Department on the above date and was hospitalized for further evaluation of their emergent condition. - New Patient This patient is new to me today: Yes Date on this admission: 05/28/18 - Critical Care Critical Care patient: No Hospitalist Screening - Colonoscopy Questionnaire Colonoscopy Questionnaire: Colonoscopy Questionnaire - Patient: 50 - 75 years old and never had a screening colonoscopy: Unknown History of colon or rectal polyps, or CA: Unknown History of IBD, Crohn's disease or UC: Unknown History of abdominal radiation therapy as a child: Unknown - Relative: 1 with colon or rectal CA, or polyps at age 60 or younger: Unknown Colon or rectal CA diagnosed at age 45 or younger: Unknown Multiple relatives with colon or rectal CA: Unknown - Outcome: Screening Result: Negative Screen
[2018-05-28] MEDS ORDERED: oxyCODONE HCL 5 MG TABLET PO PRN (20:45)
[2018-05-29 00:19] VITALS: BMI 31.3
[2018-05-29] MEDS: oxyCODONE HCL 5 MG TABLET PO PRN ×2 (01:45→12:15)
[2018-05-29 08:00] LABS: BASO % 0.5 % (0-2.0); EOS % 0.7 % (0-4.5); HEMATOCRIT 36.8 % (35.4-49); HEMOGLOBIN 12.6 GM/dL (11.7-16.9); LYMPH % 15.7 % (8-40); MCH 30.7 pg (25.7-33.7); MCHC 34.3 g/dl (32.0-35.9); MEAN CELL VOLUME 89.6 fl (80-96); MEAN PLT VOLUME 7.7 fl (7.5-11.1); MONO % 10.8 % (3.8-10.2); NEUT % 72.3 % (42.8-82.8); PLATELET COUNT 152 K/MM3 (134-434); RBC 4.11 M/mm3 (4.00-5.60); RDW 14.1 % (11.9-15.9); WHITE BLOOD COUNT 9.4 K/mm3 (4.0-10.0)
[2018-05-29 08:14] LABS: CHLORIDE 106 mmol/L (98-107); POTASSIUM 4.1 mmol/L (3.5-5.1); SODIUM 141 mmol/L (136-145)
[2018-05-29 08:19] LABS: ANION GAP 9 (8-16); BLOOD UREA NITROGEN 17 mg/dL (7-18); CALCIUM 8.3 mg/dL (8.5-10.1); CO2 26 mmol/L (21-32); CREATININE 1.8 mg/dL (0.7-1.3); GLUCOSE,RANDOM 97 mg/dL (74-106)
[2018-05-29] MEDS: SODIUM CHLORIDE 1,000 ML IV SCH ×2 (09:43→18:02)
--- NOTE | 2018-05-29 10:39 | PN ---
Physical Exam: SUBJECTIVE: Patient seen and examined. He is ambulating. He says his pain has improved. He is urinating more than yesterday. He denies hematuria. OBJECTIVE: Vital Signs Period Temp Pulse Resp BP Sys/Maynard Pulse Ox Last 24 Hr 98.0 F-99.4 F 66-104 16-20 115-144/69-86 94-97 GENERAL: The patient is awake, alert, and fully oriented, in no acute distress. LUNGS: Breath sounds equal, clear to auscultation bilaterally, no wheezes, no crackles, no accessory muscle use. HEART: Regular rate and rhythm, S1, S2 without murmur, rub or gallop. ABDOMEN: Obese, soft, nontender, nondistended, normoactive bowel sounds, no guarding, no rebound, no hepatosplenomegaly, no masses. EXTREMITIES: 2+ pulses, warm, well-perfused, no edema. Laboratory Results - last 24 hr 05/28/18 05/28/18 05/28/18 14:02 14:02 14:02 WBC 12.0 H RBC 4.84 Hgb 14.6 Hct 43.3 MCV 89.5 MCH 30.2 MCHC 33.7 RDW 14.0 Plt Count 181 MPV 7.6 Absolute Neuts (auto) 9.7 Neutrophils % 80.9 D Lymphocytes % 9.6 D Monocytes % 8.7 Eosinophils % 0.3 Basophils % 0.5 Nucleated RBC % 0 Sodium 138 Potassium 4.1 Chloride 101 Carbon Dioxide 28 Anion Gap 9 BUN 24 H Creatinine 2.1 H Creat Clearance w eGFR 32.95 Random Glucose 98 Calcium 9.2 Total Bilirubin 0.7 AST 24 ALT 45 Alkaline Phosphatase 56 Total Protein 7.3 Albumin 4.3 Urine Color Ltyellow Urine Appearance Cloudy Urine pH 5.0 Ur Specific [place] 1.015 Urine Protein 1+ H Urine Glucose (UA) Negative Urine Ketones Trace H Urine Blood 2+ H Urine Nitrite Negative Urine Bilirubin Negative Urine Urobilinogen Negative Ur Leukocyte Esterase Trace Urine WBC (Auto) None Urine RBC (Auto) 36 Uric Acid Crystals Many Hyaline Casts 1 Urine Mucus Rare 05/29/18 05/29/18 06:00 06:00 WBC 9.4 RBC 4.11 Hgb 12.6 Hct 36.8 D MCV 89.6 MCH 30.7 MCHC 34.3 RDW 14.1 Plt Count 152 MPV 7.7 Absolute Neuts (auto) 6.8 Neutrophils % 72.3 Lymphocytes % 15.7 D Monocytes % 10.8 H Eosinophils % 0.7 D Basophils % 0.5 Nucleated RBC % 0 Sodium 141 Potassium 4.1 Chloride 106 Carbon Dioxide 26 Anion Gap 9 BUN 17 Creatinine 1.8 H Creat Clearance w eGFR 39.37 Random Glucose 97 Calcium 8.3 L Total Bilirubin AST ALT Alkaline Phosphatase Total Protein Albumin Urine Color Urine Appearance Urine pH Ur Specific [place] Urine Protein Urine Glucose (UA) Urine Ketones Urine Blood Urine Nitrite Urine Bilirubin Urine Urobilinogen Ur Leukocyte Esterase Urine WBC (Auto) Urine RBC (Auto) Uric Acid Crystals Hyaline Casts Urine Mucus Active Medications Generic Name Dose Route Start Last Admin Trade Name Freq PRN Reason Stop Dose Admin Sodium Chloride 1,000 mls @ 125 mls/hr 05/28/18 16:45 05/29/18 09:43 Normal Saline - IV 125 mls/hr ASDIR KEMAR Administration Oxycodone HCl 5 mg 05/28/18 20:45 05/28/18 21:27 Roxicodone - PO 5 mg Q6H PRN Administration PAIN LEVEL 4 - 6 Oxycodone HCl 10 mg 05/28/18 20:45 05/29/18 01:45 Roxicodone - PO 10 mg Q6H PRN Administration PAIN LEVEL 7 - 10 ASSESSMENT/PLAN: This is a 57 year old man with a history of hyperlipidemia, kidney stones who presented to the ED with left flank pain. 1. Acute kidney injury secondary to obstructing left distal ureter stone with left hydroureteronephrosis - Continue to strain urine - sediment noted in strainer - will send for analysis - Creatinine improving - Continue IV fluid - KUB in morning - Hold aspirin in case procedure needed Visit type - Emergency Visit Emergency Visit: Yes ED Registration Date: 05/29/18 Care time: The patient presented to the Emergency Department on the above date and was hospitalized for further evaluation of their emergent condition. - New Patient This patient is new to me today: Yes Date on this admission: 05/29/18 - Critical Care Critical Care patient: No - Discharge Referral Referred to [facility] No
[2018-05-29] MEDS: POLYETHYLENE GLYCOL 3350 119 GM BTL PO PRN (12:18)
[2018-05-29] MEDS ORDERED: KETOROLAC TROMETHAMINE 30 MG/1 ML VIAL IVPUSH ONE (14:39)
[2018-05-29] MEDS ORDERED: MORPHINE SULFATE 2 MG/ML VIAL IVPUSH PRN ×2 (14:40→14:47)
[2018-05-29] MEDS ORDERED: oxyCODONE HCL 5 MG TABLET PO PRN ×2 (14:40→14:47)
[2018-05-29] MEDS ORDERED: ATORVASTATIN CA 20 MG TABLET (FP) PO SCH (22:00)
[2018-05-30] MEDS: SODIUM CHLORIDE 1,000 ML IV SCH ×2 (02:24→09:41)
[2018-05-30] MEDS: POLYETHYLENE GLYCOL 3350 119 GM BTL PO PRN (08:34)
[2018-05-30] MEDS ORDERED: DOCUSATE SODIUM 100 MG CAPSULE (FP) PO SCH (10:30)
[2018-05-30 11:34] LABS: BASO % 0.5 % (0-2.0); EOS % 1.6 % (0-4.5); HEMATOCRIT 35.6 % (35.4-49); MCH 30.2 pg (25.7-33.7); MCHC 33.7 g/dl (32.0-35.9); MEAN CELL VOLUME 89.5 fl (80-96); MEAN PLT VOLUME 7.6 fl (7.5-11.1); MONO % 10.9 % (3.8-10.2); PLATELET COUNT 155 K/MM3 (134-434); RBC 3.98 M/mm3 (4.00-5.60); RDW 13.4 % (11.9-15.9); WHITE BLOOD COUNT 6.5 K/mm3 (4.0-10.0)
[2018-05-30 12:20] LABS: ANION GAP 7 (8-16); BLOOD UREA NITROGEN 14 mg/dL (7-18); CALCIUM 8.2 mg/dL (8.5-10.1); CHLORIDE 106 mmol/L (98-107); CO2 27 mmol/L (21-32); CREATININE 1.6 mg/dL (0.7-1.3); GLUCOSE,RANDOM 81 mg/dL (74-106); POTASSIUM 4.2 mmol/L (3.5-5.1); SODIUM 140 mmol/L (136-145)
[2018-05-30 15:20] VITALS: BP 119/78; PULSE 71; TEMP 97.8
--- NOTE | 2018-05-30 15:42 | DS ---
Physical Exam: SUBJECTIVE: Patient seen and examined OBJECTIVE: Vital Signs Period Temp Pulse Resp BP Sys/Maynard Pulse Ox Last 24 Hr 97.8 F-98.2 F 61-71 18-20 119-140/75-88 95-96 PHYSICAL EXAM GENERAL: The patient is awake, alert, and fully oriented, in no acute distress. HEAD: Normal with no signs of trauma. EYES: PERRL, extraocular movements intact, sclera anicteric, conjunctiva clear. ENT: Ears normal, nares patent, oropharynx clear without exudates, moist mucous membranes. NECK: Trachea midline, full range of motion, supple. LUNGS: Breath sounds equal, clear to auscultation bilaterally, no wheezes, no crackles, no accessory muscle use. HEART: Regular rate and rhythm, S1, S2 without murmur, rub or gallop. ABDOMEN: Soft, nontender, nondistended, normoactive bowel sounds, no guarding, no rebound, no hepatosplenomegaly, no masses. EXTREMITIES: 2+ pulses, warm, well-perfused, no edema. NEUROLOGICAL: Cranial nerves II through XII grossly intact. Normal speech, gait not observed. PSYCH: Normal mood, normal affect. SKIN: Warm, dry, normal turgor, no rashes or lesions noted. LABS Laboratory Results - last 24 hr 05/30/18 05/30/18 10:55 10:55 WBC 6.5 RBC 3.98 L Hgb 12.0 Hct 35.6 MCV 89.5 MCH 30.2 MCHC 33.7 RDW 13.4 Plt Count 155 MPV 7.6 Absolute Neuts (auto) 4.4 Neutrophils % 67.0 Lymphocytes % 20.0 D Monocytes % 10.9 H Eosinophils % 1.6 D Basophils % 0.5 Nucleated RBC % 0 Sodium 140 Potassium 4.2 Chloride 106 Carbon Dioxide 27 Anion Gap 7 L BUN 14 Creatinine 1.6 H Creat Clearance w eGFR 45.10 Random Glucose 81 Calcium 8.2 L HOSPITAL COURSE: Date of Admission:05/29/18 Date of Discharge: 05/30/18 Minutes to complete discharge: 30 Discharge Summary Reason For Visit: ACUTE KIDNEY INJURY Current Active Problems Acute kidney injury (Acute) Constipation (Acute) SIRS (systemic inflammatory response syndrome) (Acute) Ureteral stone with hydronephrosis (Acute) Hyperlipidemia (Chronic) Nephrolithiasis (Chronic) Condition: Improved - Instructions Diet, Activity, Other Instructions: You were admitted for acute kidney injury caused by an obstructing stone in your left ureter. You may resume your usual activity and diet. Drink plenty of fluids. Please keep your appointment with the urologist on ThursdayJune 02. In the meantime, if you develop fevers, nausea/vomiting, worsening pain, please return to the ER. You have been prescribed oxycodone 5 mg to be taken every 4 hours as needed for pain. You should continue taking Colace 100 mg twice a day and Senna 2 tablets at bedtime to help with constipation. You may also take Miralax 17 g daily as needed for constipation. Referrals: Melvin Ace [Primary Care Provider] - Disposition: HOME - Home Medications Comprehensive Discharge Medication List: Ambulatory Orders Aspirin [ASA -] 81 mg PO DAILY 05/28/18 Simvastatin [Zocor -] 40 mg PO HS 05/29/18 Docusate Sodium [Colace -] 100 mg PO BID capsule 05/30/18 Polyethylene Glycol 3350 [Miralax 119 gm Btl -] 17 gm PO DAILY PRN bottle 05/30 Sennosides [Senna -] 2 tab PO HS tablet 05/30/18 oxyCODONE HCL [Roxicodone -] 5 mg PO Q4H PRN 5 Days #30 tablet MDD 6 tabs - Discharge Referral Referred to [facility] No
[2018-05-30] MEDS ORDERED: SENNOSIDES 8.6MG TABLET (FP) PO SCH (22:00)
== END 2018-05-30 16:24 | disposition home or self-care (01) | DRG 683 ==
LOC: JER 12:54 → JERBED 16:31 → J5S 18:55 → OBSVTOIN 05-29 07:56
PROVIDERS: ADMIT Internal Medicine; ATTEND Internal Medicine
DX: N17.9 Acute kidney failure, unspecified (principal); R65.10 Systemic inflammatory response syndrome (SIRS) of non-infectious origin without acute organ dysfunction; E78.5 Hyperlipidemia, unspecified; K59.00 Constipation, unspecified; D72.829 Elevated white blood cell count, unspecified; R00.0 Tachycardia, unspecified; N13.2 Hydronephrosis with renal and ureteral calculous obstruction
CPT/HCPCS: 36415; 74018-TC-FY; 80048; 80053; 81003; 81015; 85025; 87086; 99284-25; G0378; J7030

== ENCOUNTER 2022-07-28 19:19 | Inpatient (IN) | payer OTHER ==
[2022-07-28] MEDS ORDERED: ACETAMINOPHEN 1000 MG/100 ML BAG IVPB ONE (20:34)
[2022-07-28] MEDS ORDERED: SODIUM CHLORIDE 0.9% 500 ML INFUS.BAG IV ONE ×2 (20:34→23:27)
[2022-07-28 22:01] LABS: BASO % 0.2 % (0-2.0); EOS % 0.3 % (0-4.5); HEMATOCRIT 43.9 % (35.4-49); HEMOGLOBIN 14.8 GM/dL (11.7-16.9); LYMPH % 11.5 % (8-40); MCH 30.1 pg (25.7-33.7); MCHC 33.6 g/dl (32.0-35.9); MEAN CELL VOLUME 89.6 fl (80-96); MONO % 8.9 % (3.8-10.2); NEUT % 79.1 % (42.8-82.8); PLATELET COUNT 184 10^3/uL (134-434); RDW 13.6 % (11.9-15.9); WHITE BLOOD COUNT 9.8 K/mm3 (4.0-10.0)
[2022-07-28] MEDS ORDERED: ACETAMINOPHEN INJECTION 100 ML IVPB ONE (22:01)
[2022-07-28 22:04] LABS: EPI CELLS 4 /uL (0-25.1); HYALINE CASTS 0 /uL (0-3.1); PH,URINE 5.5 (5.0-8.0); URINE APPEARANCE CLEAR; URINE BACTERIA 12 /uL (0-1359); URINE BILIRUBIN NEGATIVE (NEGATIVE); URINE COLOR YELLOW; URINE GLUCOSE (UA) NEGATIVE (NEGATIVE); URINE KETONE TRACE (NEGATIVE); URINE LEUK ESTERASE TRACE (NEGATIVE); URINE NITRITE NEGATIVE (NEGATIVE); URINE PROTEIN TRACE (NEGATIVE); URINE RBC 67 /uL (0-23.9); URINE UROBILINOGEN 0.2 mg/dL (0.2-1.0); URINE WBC 13 /uL (0-25.8)
[2022-07-28 22:08] LABS: INR 1.07 (0.83-1.09); PROTHROMBIN TIME (PATIENT) 12.3 SEC (9.7-13.0)
[2022-07-28 22:11] LABS: ACTIVATED PTT 30.1 SECONDS (25.2-36.5)
[2022-07-28] MEDS ORDERED: KETOROLAC TROMETHAMINE 15 MG/ML VIAL IVPUSH ONE (22:14)
[2022-07-28 22:27] LABS: CALCIUM 9.6 mg/dL (8.5-10.1)
[2022-07-28 22:28] LABS: ALBUMIN 4.1 g/dl (3.4-5.0); BLOOD UREA NITROGEN 17.1 mg/dL (7-18)
[2022-07-28] MEDS ORDERED: LACTATED RINGERS SOLUTION 1000 ML INFUS.BAG IV ONE (22:28)
[2022-07-28 22:31] LABS: CREATININE 1.8 mg/dL (0.55-1.3)
[2022-07-28 22:32] LABS: BILIRUBIN,TOTAL 0.8 mg/dL (0.2-1); TOT PROT 7.1 g/dl (6.4-8.2)
[2022-07-28] MEDS ORDERED: TAMSULOSIN HCL 0.4 MG CAP PO ONE (23:28)
[2022-07-28] MEDS ORDERED: TAMSULOSIN HCL 0.4 MG CAP ONE (23:37)
[2022-07-28] MEDS ORDERED: KETOROLAC TROMETHAMINE 15 MG/ML VIAL ONE (23:37)
[2022-07-29] MEDS ORDERED: ACETAMINOPHEN 1000 MG/100 ML BAG IVPB PRN (04:10)
[2022-07-29] MEDS ORDERED: HEPARIN NA (PORCINE) 5,000 UNITS/ML 1ML VIAL SQ SCH (06:00)
[2022-07-29 06:20] LABS: BASO % 0.4 % (0-2.0); EOS % 1.2 % (0-4.5); HEMATOCRIT 40.6 % (35.4-49); HEMOGLOBIN 13.5 GM/dL (11.7-16.9); LYMPH % 24.3 % (8-40); MCH 29.8 pg (25.7-33.7); MCHC 33.3 g/dl (32.0-35.9); MEAN CELL VOLUME 89.5 fl (80-96); MEAN PLT VOLUME 8.1 fl (7.5-11.1); MONO % 10.4 % (3.8-10.2); NEUT % 63.7 % (42.8-82.8); PLATELET COUNT 165 10^3/uL (134-434); RBC 4.54 M/mm3 (4.00-5.60); RDW 13.8 % (11.9-15.9); WHITE BLOOD COUNT 8.3 K/mm3 (4.0-10.0)
[2022-07-29 06:46] LABS: CALCIUM 8.6 mg/dL (8.5-10.1)
[2022-07-29 06:47] LABS: ALBUMIN 3.4 g/dl (3.4-5.0); BLOOD UREA NITROGEN 16.9 mg/dL (7-18); MAGNESIUM 2.1 mg/dL (1.8-2.4)
[2022-07-29 06:50] LABS: CREATININE 1.8 mg/dL (0.55-1.3); PHOSPHOROUS 3.3 mg/dL (2.5-4.9)
[2022-07-29 06:51] LABS: BILIRUBIN,TOTAL 0.8 mg/dL (0.2-1)
[2022-07-29] MEDS: TAMSULOSIN HCL 0.4 MG CAP PO SCH (08:30)
[2022-07-29] MEDS: SODIUM CHLORIDE 1,000 ML IV SCH ×2 (09:28→23:54)
[2022-07-29] MEDS: oxyCODONE HCL 5 MG TABLET PO PRN ×2 (09:30→21:21)
[2022-07-29] MEDS ORDERED: oxyCODONE HCL 5 MG TABLET ONE ×3 (09:36→21:12)
[2022-07-29] MEDS ORDERED: TAMSULOSIN HCL 0.4 MG CAP ONE (09:36)
[2022-07-29] MEDS ORDERED: ATORVASTATIN CA 20 MG TABLET (FP) PO SCH (22:00)
[2022-07-29 23:35] VITALS: BMI 35.6
[2022-07-30] MEDS: TAMSULOSIN HCL 0.4 MG CAP PO SCH (10:48)
[2022-07-30 10:59] LABS: BASO % 0.8 % (0-2.0); EOS % 1.2 % (0-4.5); HEMATOCRIT 37.9 % (35.4-49); LYMPH % 20.8 % (8-40); MCH 30.9 pg (25.7-33.7); MCHC 34.3 g/dl (32.0-35.9); MEAN CELL VOLUME 90.1 fl (80-96); MEAN PLT VOLUME 7.6 fl (7.5-11.1); MONO % 11.7 % (3.8-10.2); NEUT % 65.5 % (42.8-82.8); PLATELET COUNT 156 10^3/uL (134-434); RBC 4.21 M/mm3 (4.00-5.60); RDW 13.5 % (11.9-15.9); WHITE BLOOD COUNT 7.2 K/mm3 (4.0-10.0)
[2022-07-30] MEDS ORDERED: ONDANSETRON 4 MG/2 ML VIAL IVPUSH PRN ×2 (11:05→14:03)
[2022-07-30] MEDS ORDERED: MIDAZOLAM HCL 2 MG/2 ML SINGLE DOSE VIAL ONE (11:07)
[2022-07-30] MEDS ORDERED: SUCCINYLCHOLINE CHLORIDE 200 MG/10 ML SYRINGE ONE (11:08)
[2022-07-30] MEDS ORDERED: PROPOFOL 20 ML ONE ×3 (11:08→11:40)
[2022-07-30 11:14] LABS: CALCIUM 8.8 mg/dL (8.5-10.1)
[2022-07-30 11:15] LABS: BLOOD UREA NITROGEN 16.1 mg/dL (7-18)
[2022-07-30] MEDS ORDERED: LACTATED RINGERS SOLUTION 1,000 ML IV SCH (11:15)
[2022-07-30 11:18] LABS: CREATININE 1.5 mg/dL (0.55-1.3)
[2022-07-30] MEDS ORDERED: ceFAZolin SODIUM 1 GM VIAL IVPB ONE (11:30)
[2022-07-30] MEDS ORDERED: oxyCODONE HCL 5 MG TABLET PO PRN (14:03)
[2022-07-30] MEDS ORDERED: SODIUM CHLORIDE 1,000 ML IV SCH (14:03)
[2022-07-30] MEDS: SODIUM CHLORIDE 1,000 ML IV SCH (15:25)
[2022-07-30] MEDS: LACTATED RINGERS SOLUTION 1,000 ML IV SCH (15:34)
[2022-07-30] MEDS: ATORVASTATIN CA 20 MG TABLET (FP) PO SCH (21:57)
[2022-07-31] MEDS: TAMSULOSIN HCL 0.4 MG CAP PO SCH (09:46)
[2022-07-31 09:51] VITALS: RESP 18
[2022-07-31 11:59] LABS: BASO % 0.3 % (0-2.0); EOS % 0.5 % (0-4.5); HEMATOCRIT 37.8 % (35.4-49); HEMOGLOBIN 12.5 GM/dL (11.7-16.9); LYMPH % 15.6 % (8-40); MCH 29.8 pg (25.7-33.7); MCHC 33.1 g/dl (32.0-35.9); MEAN CELL VOLUME 89.9 fl (80-96); MEAN PLT VOLUME 8.1 fl (7.5-11.1); MONO % 8.7 % (3.8-10.2); NEUT % 74.9 % (42.8-82.8); PLATELET COUNT 188 10^3/uL (134-434); RDW 13.6 % (11.9-15.9); WHITE BLOOD COUNT 8.8 K/mm3 (4.0-10.0)
[2022-07-31 12:21] LABS: CALCIUM 8.6 mg/dL (8.5-10.1)
[2022-07-31 12:22] LABS: BLOOD UREA NITROGEN 15.8 mg/dL (7-18)
[2022-07-31 12:25] LABS: CREATININE 1.2 mg/dL (0.55-1.3)
[2022-07-31] MEDS: LACTATED RINGERS SOLUTION 1,000 ML IV SCH ×2 (14:21→22:13)
[2022-07-31] MEDS: ATORVASTATIN CA 20 MG TABLET (FP) PO SCH (21:22)
[2022-08-01] MEDS: LACTATED RINGERS SOLUTION 1,000 ML IV SCH (06:37)
[2022-08-01] MEDS: TAMSULOSIN HCL 0.4 MG CAP PO SCH (09:19)
[2022-08-01] MEDS ORDERED: ACETAMINOPHEN 325 MG TABLET (FP) PO PRN (11:42)
[2022-08-01 12:28] LABS: HEMATOCRIT 37.6 % (35.4-49); HEMOGLOBIN 13.1 GM/dL (11.7-16.9); MCH 31.2 pg (25.7-33.7); MCHC 34.7 g/dl (32.0-35.9); MEAN CELL VOLUME 89.8 fl (80-96); MEAN PLT VOLUME 7.5 fl (7.5-11.1); PLATELET COUNT 195 10^3/uL (134-434); RBC 4.19 M/mm3 (4.00-5.60); RDW 13.7 % (11.9-15.9); WHITE BLOOD COUNT 7.7 K/mm3 (4.0-10.0)
[2022-08-01 13:01] LABS: CALCIUM 9.3 mg/dL (8.5-10.1)
[2022-08-01 13:02] LABS: BLOOD UREA NITROGEN 12.8 mg/dL (7-18)
[2022-08-01 14:41] LABS: URIC ACID 5.5 mg/dL (2.6-7.2)
[2022-08-01 15:28] VITALS: BP 134/74; PULSE 76; TEMP 98.4
[2022-08-06 10:07] LABS: CA OXALATE MONOHYDR. 20 % (.); SIZE 3x2 mm (.); SOURCE Ureter (.); WEIGHT 13 mg (.)
== END 2022-08-01 17:57 | disposition home or self-care (01) | DRG 660 ==
LOC: JER 19:19 → JERBED 23:28 → J5S 07-29 23:47 → OBSVTOIN 07-30 11:22
PROVIDERS: ADMIT Internal Medicine; ATTEND Internal Medicine
PROC: 0TC78ZZ Extirpation of Matter from Left Ureter, Via Natural or Artificial Opening Endoscopic (ICD-10-PCS; principal; 2022-07-30 11:00)
PROC: 0T778DZ Dilation of Left Ureter with Intraluminal Device, Via Natural or Artificial Opening Endoscopic (ICD-10-PCS; 2022-07-30 11:00)
PROC: BT1FZZZ Fluoroscopy of Left Kidney, Ureter and Bladder (ICD-10-PCS; 2022-07-30 11:00)
DX: N13.2 Hydronephrosis with renal and ureteral calculous obstruction (principal); E87.0 Hyperosmolality and hypernatremia; N17.9 Acute kidney failure, unspecified; E78.5 Hyperlipidemia, unspecified; R10.32 Left lower quadrant pain; R31.9 Hematuria, unspecified; M25.461 Effusion, right knee; N28.1 Cyst of kidney, acquired; E66.9 Obesity, unspecified; Z68.35 Body mass index [BMI] 35.0-35.9, adult; E86.0 Dehydration
CPT/HCPCS: 36415; 73562-TC-RT-FY; 74176-TC; 76000-TC-FY; 76775-TC; 76882-TC-RT-FY; 80048; 80053; 81003; 82360; 82550; 82553; 83735; 84100; 84550; 85025; 85027; 85610; 85730; 86850; 86900; 86901; 87086; 88108; 88300-TC; 93005; 93010; 94010; 94760; 99285-25; C2617; C9803-CS; G0378; U0003; U0005

== ENCOUNTER 2022-08-19 04:30 | Day surgery (SDC) | payer OTHER ==
[2022-08-18 10:27] VITALS: BMI 33.1
[~2022-08-19 04:30] MED LIST: ceFAZolin SODIUM 1 GM VIAL IVPB ONE
[2022-08-19 08:39] VITALS: RESP 18
[2022-08-19] MEDS ORDERED: MIDAZOLAM HCL 2 MG/2 ML SINGLE DOSE VIAL ONE (10:40)
[2022-08-19] MEDS ORDERED: ceFAZolin SODIUM 1 GM VIAL IVPB ONE (10:48)
[2022-08-19] MEDS ORDERED: PROPOFOL 20 ML ONE (10:54)
[2022-08-19 12:32] VITALS: BP 118/74; PULSE 60; TEMP 97.8
== END 2022-08-19 12:20 | disposition home or self-care (01) ==
LOC: JASU-SURG 04:30
PROVIDERS: ATTEND Urology
PROC: 0TF4XZZ Fragmentation in Left Kidney Pelvis, External Approach (ICD-10-PCS; principal; 2022-08-19 10:00)
DX: N20.0 Calculus of kidney (principal)